=== PATIENT | female | born 1970 | race Caucasian/White ===

== ENCOUNTER 2017-07-14 12:07 | Emergency (ER) | payer SELFPAY ==
[~2017-07-14] VITALS: Ht 167.6 cm; Wt 72.7 kg
[2017-07-14 13:00] LABS: HEMATOCRIT 40.3 % (36.0-46.0); MCH 32.9 PG (29.0-34.0); MCHC 34.5 G/DL (30.0-36.0); MCV 95.5 FL (83-99); MEAN PLAT.VOLUME 9.2 uM^3 (9.5-12.4); PLATELET COUNT 336 K/uL (156-360); RBC DIS.WIDTH-CV 12.8 % (11.8-14.6); RBC DIS.WIDTH-SD 45.1 % (39-53); RED BLOOD COUNT 4.22 M/uL (3.80-5.20); WHITE BLOOD COUNT 9.6 K/uL (4.1-10.2)
[2017-07-14 13:08] LABS: CHLORIDE 105 mEq/L (99-109); POTASSIUM 3.8 mEq/L (3.7-5.4); SODIUM 138 mEq/L (136-147)
[2017-07-14 13:11] LABS: ANION GAP 12 MEQ/L (2-14); GLUCOSE 119 mg/dL (70-99)
[2017-07-14 13:12] LABS: TOTAL BILIRUBIN 0.8 mg/dL (0.0-1.0)
[2017-07-14 13:13] LABS: ALKALINE PHOSPHATASE 37 IU/L (3-129)
[2017-07-14 13:15] LABS: UREA NITROGEN (BUN) 10 mg/dL (9-23)
[2017-07-14 13:19] LABS: GFR ESTIMATE (CALCULATED) > 59 mL/min/
[2017-07-14 13:24] LABS: QUANTITATIVE HCG < 4.0 MIU/ML
[2017-07-14 13:34] LABS: LIPASE 18 U/L (1.0-51.0)
[2017-07-14 13:38] LABS: ADD MIUA? YES; BILIRUBIN NEGATIVE; BLOOD NEGATIVE; COLOR YELLOW ((YELLOW)); GLUCOSE (STRIP) NEGATIVE; KETONES 80; LEUKOCYTES NEGATIVE; NITRITE NEGATIVE; PROTEIN (STRIP) NEGATIVE; SPECIFIC GRAVITY 1.019 (1.000-1.030); UROBILINOGEN 0.2 MG/DL (0.2-1.0)
[2017-07-14 13:50] LABS: BACTERIA RARE /HPF; EPITHELIAL CELLS 2+ /HPF; MUCUS TRACE /LPF; RED BLOOD CELLS 0-5 /HPF (0-5); UCUL ADDED? YES
[2017-07-14] MEDS ORDERED: PERCOCET 5/31 TABLET PO (18:34)
[2017-07-14] MEDS ORDERED: ZOFRAN ODT4 MG PO (18:34)
[2017-07-14] MEDS ORDERED: MOTRIN800 MG PO (18:34)
[2017-07-14 18:54] VITALS: BP 114/79
== END 2017-07-14 18:58 | disposition home or self-care (01) ==
LOC: EME 12:07
DX: N83.201 Unspecified ovarian cyst, right side (principal); R10.31 Right lower quadrant pain; R11.2 Nausea with vomiting, unspecified; Z97.5 Presence of (intrauterine) contraceptive device
CPT/HCPCS: 74177; 76856; 80053; 81003; 83690; 84702; 85027; 87086; 99281; 99285; J1885; J2270; J2405; J3010; J7040